=== PATIENT | male | born 1975 | race Hispanic/Latino ===

== ENCOUNTER → 2025-04-02 10:19 | Outpatient (REF) | payer OTHER, SELFPAY ==
[2025-04-02 12:12] LABS: Hematocrit 45.3 % (39.0-52.0); Hemoglobin 15.7 g/dL (13.0-18.0); Mean Corp Hgb Conc. 34.7 g/dL (33.0-37.0); Mean Corpuscular Volume 88.6 fL (80.0-94.0); Nucleated Red Blood Cells % 0 % (-); Platelet Count 214 10^3/uL (130-400); Red Cell Dist. Width 11.9 % (11.5-14.5)
[2025-04-02 12:56] LABS: Blood Urea Nitrogen 20 mg/dl (9-20); Calcium 9.5 mg/dl (8.4-10.2); Carbon Dioxide 24 mmol/L (22-30); Chloride 105 mmol/L (98-107); Glucose 94 mg/dl (70-99); Potassium 4.8 mmol/L (3.5-5.1); Sodium 138 mmol/L (135-145); eGFR > 60.00
== END ==
LOC: REG 10:19
PROVIDERS: ATTENDING PHYSICIAN Orthopaedic Surgery Hand Surgery
DX: Z01.818 Encounter for other preprocedural examination (principal)
CPT/HCPCS: 36415; 80048; 85025

== ENCOUNTER 2025-04-29 06:24 | Outpatient (RCR) | payer OTHER, SELFPAY | END 2025-04-29 23:59 | disposition home or self-care (01) | LOC: RPT 06:24 | PROVIDERS: ATTENDING PHYSICIAN Physician Assistant; FAMILY PHYSICIAN Family Medicine | DX: Z47.89 Encounter for other orthopedic aftercare (principal); M75.112 Incomplete rotator cuff tear or rupture of left shoulder, not specified as traumatic; Z73.6 Limitation of activities due to disability; M25.512 Pain in left shoulder; R20.0 Anesthesia of skin; M62.81 Muscle weakness (generalized) | CPT/HCPCS: 97010; 97110; 97140; 97162 ==

== ENCOUNTER 2025-06-03 06:31 | Outpatient (RCR) | payer OTHER, SELFPAY | END 2025-06-03 23:59 | disposition home or self-care (01) | LOC: RPT 06:31 | PROVIDERS: ATTENDING PHYSICIAN Physician Assistant; FAMILY PHYSICIAN Family Medicine | DX: Z47.89 Encounter for other orthopedic aftercare (principal); M75.112 Incomplete rotator cuff tear or rupture of left shoulder, not specified as traumatic; Z73.6 Limitation of activities due to disability; M25.512 Pain in left shoulder; R20.0 Anesthesia of skin; M62.81 Muscle weakness (generalized) | CPT/HCPCS: 97010; 97110; 97140 ==